=== PATIENT | male | born 1980 ===

== ENCOUNTER 2017-08-03 09:21 | Inpatient (IN) | payer OTHER ==
[2017-08-03 09:38] VITALS: BMI 31.2
[2017-08-03 10:54] LABS: BASO % 0.5 % (0.0-2.0); EOS % 0.4 % (0.0-4.0); LYMPH % 21.6 % (20.0-40.0); MEAN CELL VOLUME 87.1 fL (80.0-94.0); MEAN CORPUSCULAR HGB CONC 35.6 g/dL (33.0-37.0); MEAN PLATELET VOLUME 9.2 fL (7.2-11.7); MONO # 0.5 K/uL (0.0-0.8); NEUT # 6.6 K/uL (1.8-7.0); NEUT % 72.5 % (50.0-75.0); RBC 5.25 Mil/uL (4.40-5.90); RED CELL DISTRIBUTION WIDTH 13.5 % (11.5-14.5); WHITE BLOOD COUNT 9.1 K/uL (4.8-10.8)
[2017-08-03 11:03] LABS: URINE BACTERIA RARE (<OCC); URINE BILIRUBIN NEGATIVE (NEGATIVE); URINE BLOOD NEGATIVE (NEGATIVE); URINE CLARITY Clear (Clear); URINE COLOR Colorless (YELLOW); URINE GLUCOSE (UA) NORMAL (Normal); URINE LEUKOCYTE ESTERASE NEG Leu/uL (Negative); URINE PROTEIN NEGATIVE (NEGATIVE); URINE UROBILINOGEN NORMAL mg/dL (0.2-1.0)
[2017-08-03 11:14] LABS: ALB/GLOB RATIO 1.3 (1.0-2.1); ALBUMIN 4.6 g/dL (3.5-5.0); ALT/SGPT 69 U/L (21-72); AST/SGOT 46 U/L (17-59); BLOOD UREA NITROGEN 12 mg/dL (9-20); CALCIUM 9.2 mg/dl (8.6-10.4); GFR AFRICAN-AMERICAN > 60; GFR NON-AFRICAN AMERICAN > 60
[2017-08-03 11:30] LABS: BARBITURATES, UR NEGATIVE (NEGATIVE); BENZODIAZEPINES, UR NEGATIVE (NEGATIVE); OPIATES, UR NEGATIVE (NEGATIVE); PHENCYCLIDINE, UR NEGATIVE (NEGATIVE)
--- NOTE | 2017-08-03 11:44 | C.PDOC ---
History Of Present Illness 37 y/o male, w/PMhx of bipolar disorder, presents to the ER complaining of not being able to eat and sleep for the past 2 weeks. Patient states that he is also feeling depressed.Patient reports that he is taking his medications for bipolar disorder but he does not feel better. He denies having suicidal ideation , homicidal ideation, and other complaints. Time Seen by Provider: 08/03/17 09:30 Chief Complaint (Nursing): Psychiatric Evaluation History Per: Patient History/Exam Limitations: no limitations Onset/Duration Of Symptoms: Days Current Symptoms Are (Timing): Still Present Past Medical History Reviewed: Historical Data, Nursing Documentation, Vital Signs Vital Signs: Last Vital Signs Temp 98.3 F 08/04/17 06:31 Pulse 83 08/04/17 15:56 Resp 16 08/04/17 06:31 BP 111/76 08/04/17 15:56 Pulse Ox 97 08/04/17 18:46 - Medical History PMH: Anxiety, Bipolar Disorder Surgical History: No Surg Hx - [facility] Procedures INJECT/INFUSE NEC (09/19/12) Family History: States: No Known Family Hx - Social History Hx Alcohol Use: No Hx Substance Use: No - Immunization History Hx Tetanus Toxoid Vaccination: No Hx Influenza Vaccination: No Hx Pneumococcal Vaccination: No Review Of Systems Except As Marked, All Systems Reviewed And Found Negative. Constitutional: Negative for: Fever, Chills Psych: Positive for: Depression. Negative for: Suicidal ideation Physical Exam - Physical Exam Appears: Non-toxic, No Acute Distress Skin: Normal Color, Warm Head: Atraumatic, Normacephalic Eye(s): bilateral: Normal Inspection Nose: Normal Oral Mucosa: Moist Neck: Supple Chest: Symmetrical Cardiovascular: Rhythm Regular Respiratory: Normal Breath Sounds, No Rales, No Rhonchi, No Wheezing Gastrointestinal/Abdominal: Normal Exam, Soft, No Tenderness Extremity: Normal ROM Neurological/Psych: Oriented x3, Normal Speech ED Course And Treatment - Laboratory Results Result Diagrams: 08/03/17 10:50 08/03/17 10:50 O2 Sat by Pulse Oximetry: 97 (RA) Pulse Ox Interpretation: Normal Progress Note: Labs, UA, and Crisis evaluation ordered. Patient has been medically cleared. Disposition - Disposition Disposition: HOSPITALIZED Disposition Time: 13:00 Condition: FAIR - Clinical Impression Clinical Impression: Bipolar disorder - PA / SWING GRINDER / Resident Statement / has reviewed & agrees with the documentation as recorded. - Scribe Statement The provider has reviewed the documentation as recorded by the Aston Courtney Provider Attestation All medical record entries made by the Aston were at my direction and personally dictated by me. I have reviewed the chart and agree that the record accurately reflects my personal performance of the history, physical exam, medical decision making, and the department course for this patient. I have also personally directed, reviewed, and agree with the discharge instructions and disposition. Decision To Admit - Pt Status Changed To: Hospital Disposition Of: Inpatient - Admit Certification Admit to Inpatient:: After my assessment, the patient will require hospitalization for at least two midnights. This is because of the severity of symptoms shown, intensity of services needed, and/or the medical risk in this patient being treated as an outpatient. - InPatient: Physician Admission Certification: I certify that this patient requires 2 or more midnights of care for the following reason:: PATIENT WILL NEED MORE THAN 2 DAYS FOR HOSPITALIZATION FOR BIPOLAR DISOREDR EXACERBATION - . Bed Request Type: Psychiatry Admitting Physician: Shruthi Chappell Patient Diagnosis: Bipolar disorder
--- NOTE | 2017-08-04 07:59 | PCM.BM ---
<Lupe Ware - Last Filed: 08/04/17 07:56> Treatment Plan Problems - Problems identified on initial assessmt Depression Date Initiated: 08/04/17 Time Initiated: 07:57 Assessment reference: NA Status: Active Treatment assets and liabiliti Patient Assests: cooperative, insightful, physically healthy, good support system Patient Liabilities: other (Always depressed) - Milieu Protocol Maintain good personal hygiene: daily Encourage regular showers, daily Remind patient to perform daily oral care, daily Assist patient to perform ADL's Maintain personal safety: daily Educate patient to report safety concerns to staff, daily Monitor environment for contraband/sharps Medication safety: Monitor for expected outcome, potential side effects: daily, Assess barriers to learning: daily, Assess readiness for medication education: daily <Domingo Dawkins - Last Filed: 08/05/17 11:31> - Diagnosis (1) Bipolar disorder Status: Acute Interventions: 08/05/17 11:31 * Assess/adjust medications daily and /or as needed * See patient on an individual basis 7x/week to assess level of manic behaviors and stability * Discuss risks, benefits, side effects and alternatives of medications * <Marnie Darden - Last Filed: 08/05/17 11:51> Family Contact Family involvement: Famliy/SO not involved - Goals for Treatment Patient goals for treatment: "I want to go back to my private psychiatrist." Discharge/Continuing Care - Education Needs Education Needs: Patient Medication, Patient Coping Skills - Discharge Discharge Criteria: Tolerates medication w/o severe side effects, Reduction of target symptoms Discharge to:: Home - Treatment Team Participation Discussed with Family/SO: No Was Patient/Family/SO present at Treatment Team Meeting: Yes
--- NOTE | 2017-08-05 09:38 | PCM.PYCHPN ---
Psychiatric Progress Note - Psychiatric Progress Note Patient seen today, length of contact: 15 min Patient Chief Complaint: I am feeling depressed.' Problems Identified/Issues Discussed: Patient seen and evaluated, chart reviewed and discussed with the nurse. Patient states irritability and agitation. He still reports of voices. He reports depressed mood. He reports poor sleep. Patient is compliant with medications and denies any side effects. Symptoms are improving but need more time to stabilize. Support and psychoeducation given. Medication Change: Yes (reduce Seroquel) Medical Record Reviewed: Yes Mental Status Examination - Cognitive Function Orientation: Person, Place, Situation, Time Memory: Intact Attention: WNL Concentration: Poor Association: WNL Fund of Knowledge: Poor - Mood Mood: Depressed, Anxious - Affect Affect: Constricted - Speech Speech: Soft - Formal Thought Process Formal Thought Process: No Impairment - Suicidal Ideation Suicidal Ideation: No - Homicidal Ideation Homicidal Ideation: No Goal/Treatment Plan - Goal/Treatment Plan Need for Continued Stay: Severe depression anxiety, Severe functional impairment Progress Toward Problem(s) and Goals/Treatment Plan: Bipolar mixed severe with psychotic features CBT Psychoeducation Supportive therapy Seroquel 100 mg PO Daily Reduce Seroquel 400 mg PO QHS Trazodone 100 mg PO QHS - Smoking Cessation Smoking Cessation Initiated: No
--- NOTE | 2017-08-05 10:38 | PCM.PSYCH ---
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 PT WORKS A [employer] FOR [employer] [facility]. POT WAS BORN IN [facility]. HE WENT TO [employer]. HE CAME TO [facility] IN [id number]. PT HAS NO LEGAL OR HISTORY. PT ABUSED ALCOHOL AT ONE TIME BUT HAS BEEN SOBER FOR OVER EIGHT YEARS. [T HAS BEEN TO [facility] FOR PSYCHIATRIC REASONS TWICE. THE LAST TIME WAS 6 YEARS AGO. PT HAS BEEN PRESCRIBED SEROQUEL FOR GHIS PARANOIA. PT DENIES ANY PAST OR CURRENT SI/HI. Current Medications: Active Medications Generic Name Dose Route Start Last Admin Trade Name Freq PRN Reason Stop Dose Admin Haloperidol 5 mg 08/03/17 14:50 Haldol PO Q1H PRN agitation max 4x/24h Hydroxyzine HCl 50 mg 08/03/17 14:50 Atarax PO Q6H PRN Anxiety Ibuprofen 600 mg 08/03/17 14:50 Motrin Tab PO Q6H PRN Pain, moderate (4-7) Quetiapine Fumarate 100 mg 08/04/17 10:00 08/05/17 09:05 Seroquel PO 100 mg DAILY SHANE Administration Quetiapine Fumarate 600 mg 08/04/17 15:03 08/04/17 21:25 Seroquel PO 600 mg HS SHANE Administration Trazodone HCl 100 mg 08/03/17 14:50 Desyrel PO HS PRN Insomnia Past Psychiatric History - Past Psychiatric History Prior Professional Help: SEE HPI Pertinent Medical Hx (Current Medical&Sleep Prob, Allergies): Allergies Allergy/AdvReac Type Severity Reaction Status Date / Time No Known Allergies Allergy Verified 08/03/17 09:34 Review of Systems - EENT Eyes: UNREMARKABLE Nose/Mouth/Throat: UNREMARKABLE - Cardiovascular Cardiovascular: UNREMARKABLE - Respiratory Respiratory: UNREMARKABLE - Gastrointestinal Gastrointestinal: UNREMARKABLE - Genitourinary Genitourinary: Nocturia - Reproductive: Male Reproductive:Male: UNREMARKABLE - Musculoskeletal Musculoskeletal: UNREMARKABLE - Integumentary Integumentary: UNREMARKABLE - Neurological Neurological: UNREMARKABLE - Psychiatric Psychiatric: Auditory Hallucinations, Irritability, Paranoia - Endocrine Endocrine: UNREMARKABLE - Hematologic/Lymphatic Hematologic: UNREMARKABLE Mental Status Examination - Personal Presentation Personal Presentation: Looks younger than stated age, Dressed appropriate to season, Dressed inappropriate to season - Affect Affect: Constricted - Motor Activity Motor Activity: Calm - Reliability in Providing Information Reliability in Providing Information: Good - Speech Speech: Organized, Relevant, Coherent - Mood Mood: Anxious - Formal Thought Process Formal Thought Process: Delusions, Paranoia - Hallucinations/Delusions Hallucinations: Auditory - Obsessions/Compulsions Obsessions: No Compulsions: No - Cognitive Functions Orientation: Person, Place, Situation, Time Sensorium: Alert Attention/Concentration: Attentive Abstract Thinking: [employer] Estimate of Intelligence: Average Judgement: Intact, as evidence by: Good judgement Memory: Recent intact, as evidence by: 3/3 object recall - Risk Risk: Diminished functioning - Strength & Assets Inventory Strength & Assets Inventory: Family support, Employment history, Life experience , Cooperative - Limitations Limitations: Other DSM 5 DX - DSM 5 DSM 5 Diagnosis: SCHIZOAFFECTIVE DISORDER SEROQUEL SUPPORTIVE PSYCHOTHERAPY GROUPMILIEU AND RECREATIONAL THERAPY - Recommended/Plan of Treatment Treatment Recommendations and Plan of Treatment: SEE ABOVE Projected ELOS: 10 DAYS Prognosis: GOOD WITH TREATMENT Discharge Plan and Discharge Criteria: NO PARANOIA - Smoking Cessation Smoking Cessation Initiated: No
[2017-08-06 06:51] VITALS: O2SAT 100
--- NOTE | 2017-08-06 14:37 | PCM.PYCHPN ---
Psychiatric Progress Note - Psychiatric Progress Note Patient seen today, length of contact: 17 min Patient Chief Complaint: "feeling little better" Problems Identified/Issues Discussed: Patient seen and evaluated, chart reviewed and discussed with the nurse. Patient states some improvement in is mood and irritability. He reports poor sleep last night and required extra seroquel. Patient is compliant with medications and denies any side effects. Symptoms are improving but need more time to stabilize. Support and psychoeducation given. Medication Change: Yes (seroquel ) Medical Record Reviewed: Yes Mental Status Examination - Cognitive Function Orientation: Person, Place, Situation, Time Memory: Intact Attention: WNL Concentration: Poor Association: WNL Fund of Knowledge: Poor - Mood Mood: Anxious - Affect Affect: Broad - Speech Speech: Appropriate - Formal Thought Process Formal Thought Process: No Impairment - Suicidal Ideation Suicidal Ideation: No - Homicidal Ideation Homicidal Ideation: No Goal/Treatment Plan - Goal/Treatment Plan Need for Continued Stay: Severe depression anxiety, Severe functional impairment Progress Toward Problem(s) and Goals/Treatment Plan: Bipolar mixed severe with psychotic features CBT Psychoeducation Supportive therapy Seroquel 100 mg PO Daily Reduce Seroquel 400 mg PO QHS Trazodone 100 mg PO QHS - Smoking Cessation Smoking Cessation Initiated: No
--- NOTE | 2017-08-07 10:00 | PCM.PYCHPN ---
Psychiatric Progress Note - Psychiatric Progress Note Patient seen today, length of contact: 17 min Patient Chief Complaint: "feeling much better" Problems Identified/Issues Discussed: Patient seen and evaluated, chart reviewed and discussed with the nurse. Patient states some improvement in is mood and irritability. He reports poor sleep last night and required extra seroquel. Patient is compliant with medications and denies any side effects. Symptoms are improving but need more time to stabilize. Support and psychoeducation given. Medication Change: Yes (Start Depakote) Medical Record Reviewed: Yes Mental Status Examination - Cognitive Function Orientation: Person, Place, Situation, Time Memory: Intact Attention: WNL Concentration: Poor Association: WNL Fund of Knowledge: Poor - Mood Additional comments: appropriate mood - Affect Affect: Broad - Speech Speech: Appropriate - Formal Thought Process Formal Thought Process: No Impairment - Suicidal Ideation Suicidal Ideation: No - Homicidal Ideation Homicidal Ideation: No Goal/Treatment Plan - Goal/Treatment Plan Need for Continued Stay: Severe depression anxiety, Severe functional impairment Progress Toward Problem(s) and Goals/Treatment Plan: Bipolar mixed severe with psychotic features CBT Psychoeducation Supportive therapy Seroquel 100 mg PO Daily Seroquel 400 mg PO QHS Depakote 250 mg PO BID Trazodone 100 mg PO QHS
[2017-08-07] MEDS: Divalproex 250 mg DR Tab PO SCH ×2 (10:01→18:32)
[2017-08-08] MEDS: Divalproex 250 mg DR Tab PO SCH ×2 (09:49→17:12)
[2017-08-09] MEDS: Divalproex 500 mg DR Tab PO SCH ×2 (10:02→17:19)
--- NOTE | 2017-08-09 10:11 | PCM.PYCHPN ---
Psychiatric Progress Note - Psychiatric Progress Note Patient seen today, length of contact: 17 min Patient Chief Complaint: "feeling much better" Problems Identified/Issues Discussed: Patient seen and evaluated, chart reviewed and discussed with the nurse. Patient reports improvement in his symptoms and reports improvement in sleep. He tolerated Seroquel taper and Depakote increase well. Patient is compliant with medications and denies any side effects. Support and psychoeducation given. Medication Change: Yes (increase Depakote) Medical Record Reviewed: Yes Mental Status Examination - Cognitive Function Orientation: Person, Place, Situation, Time Memory: Intact Attention: WNL Concentration: Poor Association: WNL Fund of Knowledge: Poor - Mood Mood: Anxious - Affect Affect: Broad - Speech Speech: Appropriate - Formal Thought Process Formal Thought Process: No Impairment - Suicidal Ideation Suicidal Ideation: No - Homicidal Ideation Homicidal Ideation: No Goal/Treatment Plan - Goal/Treatment Plan Need for Continued Stay: Severe depression anxiety, Severe functional impairment Progress Toward Problem(s) and Goals/Treatment Plan: Bipolar mixed severe with psychotic features CBT Psychoeducation Supportive therapy D/C Seroquel 100 mg PO Daily Reduce Seroquel 200 mg PO QHS Increase Depakote 500 mg PO BID Trazodone 100 mg PO QHS - Smoking Cessation Smoking Cessation Initiated: No
[2017-08-10] MEDS: Divalproex 500 mg DR Tab PO SCH ×2 (09:03→17:09)
--- NOTE | 2017-08-10 23:32 | PCM.PYCHPN ---
Psychiatric Progress Note - Psychiatric Progress Note Patient seen today, length of contact: 17 min Medication Change: Yes (increase Depakote) Medical Record Reviewed: Yes Mental Status Examination - Cognitive Function Orientation: Person, Place, Situation, Time Memory: Intact Attention: WNL Concentration: Poor Association: WNL Fund of Knowledge: Poor - Mood Mood: Anxious - Affect Affect: Broad - Speech Speech: Appropriate - Formal Thought Process Formal Thought Process: No Impairment - Suicidal Ideation Suicidal Ideation: No - Homicidal Ideation Homicidal Ideation: No Goal/Treatment Plan - Goal/Treatment Plan Need for Continued Stay: Severe depression anxiety, Severe functional impairment
[2017-08-11 06:13] VITALS: RESP 18
[2017-08-11] MEDS: Divalproex 500 mg DR Tab PO SCH ×2 (09:41→17:27)
[2017-08-12 06:45] VITALS: BP 135/70; PULSE 71; TEMP 97.7
[2017-08-12] MEDS: Divalproex 500 mg DR Tab PO SCH (10:32)
--- NOTE | 2017-08-12 10:36 | PCM.PYCHDC ---
Mental Status Examination - Mental Status Examination Orientation: Person, Place, Situation, Time Memory: Intact Mood: Neutral Affect: Constricted Speech: Soft Attention: WNL Concentration: WNL Association: WNL Fund of Knowledge: WNL Formal Thought Process: No Impairment Description of patient's judgement and insight: good, fair Psychotic Thoughts and Behaviors: denies any AVH Suicidal Ideation: No Current Homicidal Ideation?: No Discharge Summary - Discharge Note Consultations:: List each consultation separately and include: 1. Reason for request. 2. Findings. 3. Follow-up Summary of Hospital Course include:: 1. Description of specific treatment plan utilized for patients during their course of treatmen. 2. Summarize the time- course for resolution of acute symptoms and/or regressed behaviors. 3. Describe issues identified and worked on during hospitalization. 4. Describe medication utilized. 5. Describe medical problems identified and treated. 6. Reassessment of suicide risk - Diagnosis (1) Bipolar disorder Current Visit: Yes Status: Acute - Final Diagnosis (DSM 5) Condition upon Discharge: FAIR Disposition: HOME/ ROUTINE Follow-up Treatment Plan: Bipolar mixed severe with psychotic features CBT Psychoeducation Supportive therapy Seroquel 100 mg PO Daily Seroquel 400 mg PO QHS Depakote 250 mg PO BID Trazodone 100 mg PO QHS Prescriptions/Medication Reconciliation: Divalproex [Depakote DR] 500 mg PO BID #60 tcp QUEtiapine [SEROquel] 200 mg PO HS #30 tab traZODone [Desyrel] 100 mg PO HS PRN #30 tab PRN Reason: Insomnia
== END 2017-08-12 11:00 | disposition home or self-care (01) | DRG 430 ==
LOC: C.ER 09:21 → C.5E 12:59
PROVIDERS: ADMIT Psychiatry & Neurology Psychiatry; ATTEND Psychiatry & Neurology Psychiatry
PROC: GZ3ZZZZ Medication Management (ICD-10-PCS; principal; 2017-08-03)
PROC: GZHZZZZ Group Psychotherapy (ICD-10-PCS; 2017-08-03)
PROC: GZ56ZZZ Individual Psychotherapy, Supportive (ICD-10-PCS; 2017-08-03)
DX: F31.64 Bipolar disorder, current episode mixed, severe, with psychotic features (principal)

== ENCOUNTER 2018-07-24 08:34 | Outpatient (CLI) | payer SELFPAY | END 2018-07-24 08:35 | disposition home or self-care (01) | LOC: C.LAB 08:34 | DX: F31.12 Bipolar disorder, current episode manic without psychotic features, moderate (principal) ==